=== PATIENT | male | born 1975 | race Caucasian/White ===

== ENCOUNTER 2017-11-05 12:53 | Observation (INO) | END 2017-11-06 17:00 | disposition home or self-care (01) ==

== ENCOUNTER 2017-11-08 22:38 | Emergency (ER) | END 2017-11-09 03:38 | disposition home or self-care (01) ==

== ENCOUNTER 2017-11-29 16:07 | Emergency (ER) | END 2017-11-29 19:24 | disposition home or self-care (01) ==

== ENCOUNTER 2018-02-18 07:34 | Emergency (ER) | END 2018-02-18 09:26 | disposition home or self-care (01) ==

== ENCOUNTER 2018-03-18 22:27 | Emergency (ER) | END 2018-03-19 05:26 | disposition home or self-care (01) ==

== ENCOUNTER 2018-04-13 19:26 | Emergency (ER) | END 2018-04-13 21:07 | disposition home or self-care (01) ==

== ENCOUNTER 2018-05-12 19:15 | Emergency (ER) | END 2018-05-13 00:06 | disposition left against medical advice (07) ==

== ENCOUNTER 2018-06-04 12:55 | Observation (INO) | payer MEDICAID ==
[~2018-06-04] VITALS: Ht 172.7 cm; Wt 107.1 kg
[2018-06-04] MEDS: INSULIN ASPART [NOVOLOG] 3 ML PEN SC SCH (00:30)
[~2018-06-04 12:55] MED LIST: AMLO5TAB4 PO; ASPI-817 PO; LOSA100T15 PO; METF500T24 PO; METO-319 PO
[2018-06-04] MEDS ORDERED: ASPIRIN 81 MG TAB PO STA (15:59)
--- NOTE | 2018-06-04 16:09 | ERD ---
ER Documentation Chief Complaint Chief Complaint CHEST PAIN X1 DAY, SOB HPI 42-year-old male with a history of hypertension and diabetes referred by his primary care physician to the emergency room for chest pain. EKG done today at clinic was normal without any acute changes. He was given 1 nitroglycerin and 1 aspirin 325 mg prior to arrival. Patient states that since last night he has been having some intermittent chest pressure with numbness and tingling in his left face and left arm. He has had associated dizziness as well. No shortness of breath. No fevers or chills. No headache, focal weakness, or vision disturbance. ROS All systems reviewed and are negative except as per history of present illness. Medications Home Meds Reported Medications Pantoprazole* (Pantoprazole*) 40 Mg Tablet.dr, 40 MG PO AC BREAKFAST, TAB 06/04/18 Metoprolol Succinate* (Toprol XL*) 50 Mg Tab.er.24h, 50 MG PO DAILY, #30 TAB 03/19/18 Metformin Hcl* (Metformin Hcl*) 500 Mg Tablet, 500 MG PO WITH BREAKFAST DINNE, #60 TAB 03/19/18 Losartan Potassium* (Losartan Potassium*) 100 Mg Tablet, 100 MG PO DAILY, TAB 03/19/18 Amlodipine Besylate* (Norvasc*) 5 Mg Tablet, 5 MG PO DAILY, TAB 03/19/18 Aspirin* (Aspirin* EC) 81 Mg Tablet.dr, 81 MG PO DAILY, TAB 03/19/18 Allergies Allergies: Coded Allergies: No Known Allergy (Unverified , 06/04/18) PMhx/Soc History of Surgery: Yes (Left wrist sx, metal placement 10 years) Anesthesia Reaction: No Hx Neurological Disorder: No Hx Respiratory Disorders: No Hx Cardiac Disorders: Yes (HTN) Hx Psychiatric Problems: No Hx Miscellaneous Medical Probl: Yes (DM2, GOUT) Hx Alcohol Use: No Hx Substance Use: No Hx Tobacco Use: Yes FmHx Family History: No diabetes Physical Exam Vitals Vital Signs Date Temp Pulse Resp B/P (MAP) Pulse Ox O2 O2 Flow FiO2 Time Delivery Rate 06/04/18 98.1 75 24 131/89 96 Room Air 18:28 (103) 06/04/18 82 16 130/78 96 Room Air 17:24 (95) 06/04/18 97.6 82 17 123/81 95 12:58 (95) Physical Exam Const: No acute distress, obese Head: Atraumatic Eyes: Normal Conjunctiva, PERRLA, EOMI ENT: Normal External Ears, Nose and Mouth. Neck: Full range of motion. No meningismus. Resp: Clear to auscultation bilaterally Cardio: Regular rate and rhythm, no murmurs. 2+ distal pulses in all 4 extremities Abd: Soft, non tender, non distended. Normal bowel sounds Skin: No petechiae or rashes Back: No midline or flank tenderness Ext: No cyanosis, or edema Neur: Awake and alert, oriented, normal speech, cranial nerves intact, strength and sensations intact in all 4 extremities. Psych: Normal Mood and Affect Result Diagram: 06/04/18 1623 06/04/18 1623 Results 24 hrs Laboratory Tests Test 06/04/18 16:23 White Blood Count 10.9 10^3/ul Red Blood Count 5.19 10^6/ul Hemoglobin 15.3 g/dl Hematocrit 46.2 % Mean Corpuscular Volume 89.0 fl Mean Corpuscular Hemoglobin 29.5 pg Mean Corpuscular Hemoglobin Concent 33.1 g/dl Red Cell Distribution Width 12.0 % Platelet Count 368 10^3/UL Mean Platelet Volume 9.1 fl Immature Granulocytes % 0.300 % Neutrophils % 61.8 % Lymphocytes % 29.8 % Monocytes % 5.1 % Eosinophils % 2.4 % Basophils % 0.6 % Nucleated Red Blood Cells % 0.0 /100WBC Immature Granulocytes # 0.030 10^3/ul Neutrophils # 6.7 10^3/ul Lymphocytes # 3.2 10^3/ul Monocytes # 0.6 10^3/ul Eosinophils # 0.3 10^3/ul Basophils # 0.1 10^3/ul Nucleated Red Blood Cells # 0.0 10^3/ul Sodium Level 139 mmol/L Potassium Level 4.0 mmol/L Chloride Level 105 mmol/L Carbon Dioxide Level 23 mmol/L Anion Gap 11 Blood Urea Nitrogen 8 mg/dl Creatinine 0.61 mg/dl Est Glomerular Filtrat Rate mL/min > 60 mL/min Glucose Level 107 mg/dl Calcium Level 9.7 mg/dl Troponin I < 0.012 ng/ml Current Medications Medications Dose Sig/Roberto Start Time Status Last (Trade) Ordered Route PRN Stop Time Admin Dose Reason Admin Aspirin 162 mg ONCE STAT 06/04/18 DC (Aspirin) PO 15:59 06/04/18 16:01 Ondansetron 4 mg ER BRIDGE 06/04/18 DC HCl (Zofran PRN IV 18:00 Inj) NAUSEA AND/OR 06/04/18 18:22 VOMITING 650 mg ER BRIDGE 06/04/18 DC Acetaminophen PRN PO MILD 18:00 (Tylenol PAIN(1-3)OR 06/04/18 18:22 Tab) ELEVATED TEMP Amlodipine 5 mg DAILY PO 06/05/18 Besylate 09:00 (Norvasc) Aspirin 81 mg DAILY PO 06/05/18 (Halfprin) 09:00 Losartan 100 mg DAILY PO 06/05/18 Potassium 09:00 (Cozaar) Metoprolol 50 mg DAILY PO 06/05/18 Succinate 09:00 (Toprol Xl) 40 mg AC 06/05/18 Pantoprazole BREAKFAST 07:00 (Protonix PO Tab) IV Flush 3 ml PER 06/04/18 (NS 3 ml) PROTOCOL IV 18:30 Ondansetron 4 mg Q6H PRN 06/04/18 HCl (Zofran IV NAUSEA 18:30 Inj) AND/OR VOMITING 1 tab Q5M PRN 06/04/18 Nitroglycerin SL CHEST 18:30 PAIN (Nitroglyceri n (Sl Tab) 0.4 Mg) 650 mg Q6H PRN 06/04/18 Acetaminophen PO PAIN 18:30 (Tylenol LEVEL 1-3 OR Tab) FEVER 1 tab Q6H PRN 06/04/18 Acetaminophen PO PAIN 18:30 / LEVEL 4-6 Hydrocodone Bitart ([place] (5/325)) Docusate 100 mg Q12H PRN 06/04/18 Sodium PO 18:30 (Colace) CONSTIPATION Magnesium 30 ml DAILY PRN 06/04/18 Hydroxide PO 18:30 (Milk Of Mag) CONSTIPATION 40 mg DAILY@06 06/05/18 UNV Pantoprazole PO 06:00 (Protonix Tab) Enoxaparin 40 mg DAILY SC 06/05/18 Sodium 09:00 (Lovenox) Discontinue ONCE ONCE 06/04/18 DC Miscellaneous current oral XX 18:30 sulfonylur... 06/04/18 18:31 Information (* Miscellaneous Pharmacy Order) Diagnostic 1 ea 02 XX 06/05/18 Test (Pha) 02:00 (Accu-Chek) ONCE ONCE 06/04/18 DC Miscellaneous HYPOGLYCEMIA XX 18:30 PROTOCOL 06/04/18 18:31 Information w... (* Miscellaneous Pharmacy Order) Insulin NOVOLOG WITH MEALS 06/04/18 Aspart *MILD* BEDTIME SC 21:00 (Novolog ALGORITHM Insulin Pen) Discontinue ONCE ONCE 06/04/18 DC Miscellaneous all previ... XX 18:30 06/04/18 18:31 Information (* Miscellaneous Pharmacy Order) 1 ea NOTE XX 06/04/18 Miscellaneous 18:30 Information Glucose 15 gm Q15M PRN 06/04/18 (Glutose) PO DECREASED 18:30 GLUCOSE Glucose 22.5 gm Q15M PRN 06/04/18 (Glutose) PO DECREASED 18:30 GLUCOSE Dextrose 25 ml Q15M PRN 06/04/18 (D50w IV DECREASED 18:30 Syringe) GLUCOSE Dextrose 50 ml Q15M PRN 06/04/18 (D50w IV DECREASED 18:30 Syringe) GLUCOSE Glucagon 1 mg Q15M PRN 06/04/18 (Glucagen) IM DECREASED 18:30 GLUCOSE Glucose 15 gm Q15M PRN 06/04/18 (Glutose) BUCCAL 18:30 DECREASED GLUCOSE Procedures/MDM EMERGENT LABS AND DIAGNOSTIC STUDIES: Lab Results above were reviewed and interpreted by me. CBC: no anemia or evidence of infection BMP: No evidence of electrolyte abnormality, renal failure, hypoglycemia Troponin within normal limits, not indicative of cardiac ischemia 12-lead EKG was interpreted by Rishabh Ordaz MD: Normal Sinus Rhythm Left posterior fascicular block T wave inversions in 3 and aVF, not seen on EKG done at doctor's office prior to arrival Impression: no acute STEMI, abnormal EKG Radiology Results as interpreted by Radiology below were reviewed by Herminia Ordaz MD: Chest x-ray: No acute abnormalities Initial Nursing notes reviewed. Previous Medical Records requested via the Electronic Health Record. EMERGENCY DEPARTMENT COURSE / MEDICAL DECISION MAKING: Patients symptoms are concerning for a cardiac etiology. Other etiologies considered were PE, aortic dissection, pneumonia, pneumothorax, esophageal rupture. EKG showed inferior T wave inversions, that may be secondary to ischemia. [Initial troponin negative. CXR grossly unremarkable. However patient has an intermediate risk of adverse events with a heart score of 4. Plan to admit for further evaluation. Patient is not safe for discharge and will need inpatient monitoring and further evaluation. Further workup will be deferred to the inpatient team. Accepting Care Team: Current data and ongoing care discussed. Time: Time of admission Primary Provider: Dr. Collins Outstanding Data: none Departure Diagnosis: Primary Impression: Chest pain Chest pain type: unspecified Qualified Codes: R07.9 - Chest pain, uns pecified Condition: Fair ROSCOE ORDAZ MD Jun 04, 2018 16:09
[2018-06-04] MEDS ORDERED: PANT40TA4 PO (16:17)
[2018-06-04] MEDS ORDERED: ONDANSETRON 4 MG INJ IV PRN ×2 (18:00→18:30)
[2018-06-04] MEDS ORDERED: ACETAMINOPHEN 325 MG TAB PO PRN ×2 (18:00→18:30)
[2018-06-04] MEDS ORDERED: NITROGLYCERIN (SL) 0.4 MG TAB SL PRN (18:30)
[2018-06-04] MEDS ORDERED: NACL 0.9% 3 ML SYG IV SCH (18:30)
[2018-06-04] MEDS ORDERED: GLUCOSE GEL 15 GRAM TUBE PO PRN ×2 (18:30)
[2018-06-04] MEDS ORDERED: GLUCAGON 1 MG INJ IM PRN (18:30)
[2018-06-04] MEDS ORDERED: HYDROCODONE/APAP (5/325) TAB PO PRN (18:30)
[2018-06-04] MEDS ORDERED: DOCUSATE SODIUM 100 MG CAP PO PRN (18:30)
[2018-06-04] MEDS ORDERED: MAGNESIUM HYDROXIDE 30ML CUP PO PRN (18:30)
[2018-06-04] MEDS ORDERED: DEXTROSE 50% 50 ML SYRINGE IV PRN ×2 (18:30)
[2018-06-04] MEDS ORDERED: GLUCOSE GEL 15 GRAM TUBE BUCCAL PRN (18:30)
--- NOTE | 2018-06-04 19:22 | HP ---
Date/Time of Note Date/Time of Note DATE: 06/04/18 TIME: 19:10 Assessment/Plan VTE Prophylaxis SCD applied (from Nsg): Yes Pharmacological prophylaxis: LMWH Lines/Catheters IV Catheter Type (from Nrsg): Saline Lock Assessment/Plan Assessment/Plan 1. Acute chest pain, rule out ACS - Cardiology consultation appreciated and will continue to trend trops - Negative trop x1 - EKG negative for acute ST changes - ECHO ordered - Stress performed 10/2017 was negative for acute ischemic changes - will check TSH and lipid panel 2. RUQ pain - rule out acute adelia - RUQ US performed and will check LFTs - Zosyn empirically started given elevated WBC 3. DM - A1c noted - Will hold home metformin - ISS and accuchecks 4. HTN - continue home medications 5. Diet - Carb controlled 6. GI ppx - PPI 7. DVT ppx - LMWH 8. Disposition - Admit to telemetry for ACS workup as well as evaluation of RUQ pain Result Diagram: 06/04/18 1623 06/04/18 1623 Results 24hrs Laboratory Tests Test 06/04/18 16:23 White Blood Count 10.9 #H Red Blood Count 5.19 Hemoglobin 15.3 Hematocrit 46.2 Mean Corpuscular Volume 89.0 Mean Corpuscular Hemoglobin 29.5 Mean Corpuscular Hemoglobin Concent 33.1 Red Cell Distribution Width 12.0 Platelet Count 368 Mean Platelet Volume 9.1 Immature Granulocytes % 0.300 Neutrophils % 61.8 Lymphocytes % 29.8 Monocytes % 5.1 Eosinophils % 2.4 Basophils % 0.6 Nucleated Red Blood Cells % 0.0 Immature Granulocytes # 0.030 Neutrophils # 6.7 Lymphocytes # 3.2 H Monocytes # 0.6 Eosinophils # 0.3 Basophils # 0.1 Nucleated Red Blood Cells # 0.0 Sodium Level 139 Potassium Level 4.0 Chloride Level 105 Carbon Dioxide Level 23 Anion Gap 11 Blood Urea Nitrogen 8 Creatinine 0.61 Est Glomerular Filtrat Rate mL/min > 60 Glucose Level 107 Hemoglobin A1c 6.2 H Calcium Level 9.7 Troponin I < 0.012 HPI/ROS Admit Date/Time Admit Date/Time 06/04/18 1830 Hx of Present Illness 42 yo M with PMH HTN, DM, and tobacco abuse presented to ED with chest pain. Patient states he was experiencing left arm numbness that radiated to his face as well as neck and left sided chest pain at rest that started last night. He denies any association with active or food. He admits to associated shortness of breath, dizziness, nausea but denies any vomiting, loss of consciousness or palpitations. He went to his primary care physician who performed and EKG which was normal. He was given aspirin and nitro prior to arrival. He was here last October with similar chest pain but numbness and tingling were new. Patient also admits to 1 week of RUQ pain with associated nausea, diarrhea, and worsens after eating. Patient states his mother has HTN but denies any family history of CAD. ROS All 12 systems reviewed and pertinent positives as per HPI. All others negative. Constitutional: nausea; No chills, No fatigue Eyes: No discharge ENT: No congestion Respiratory: shortness of breath; No cough, No sputum, No wheezing Cardiovascular: chest pain; No lightheadedness, No palpitations Gastrointestinal: pain, diarrhea, nausea; No constipation, No vomiting Genitourinary: no complaints Musculoskeletal: no complaints Skin: No laceration, No rash Neurologic: other (numbness left arm and face); No confusion, No dizziness, No focal-weakness, No headache, No syncope Endocrine: no complaints Lymphatic: no complaints Psychological: nl mood/affect Immunologic: no complaints PMH/Family/Social Past Medical History Medical History: diabetes, hypertension Medications Current Medications Amlodipine Besylate (Norvasc) 5 mg DAILY PO ; Start 06/05/18 at 09:00 Aspirin (Halfprin) 81 mg DAILY PO ; Start 06/05/18 at 09:00 Losartan Potassium (Cozaar) 100 mg DAILY PO ; Start 06/05/18 at 09:00 Metoprolol Succinate (Toprol Xl) 50 mg DAILY PO ; Start 06/05/18 at 09:00 Pantoprazole (Protonix Tab) 40 mg AC BREAKFAST PO ; Start 06/05/18 at 07:00 IV Flush (NS 3 ml) 3 ml PER PROTOCOL IV ; Start 06/04/18 at 18:30 Ondansetron HCl (Zofran Inj) 4 mg Q6H PRN IV NAUSEA AND/OR VOMITING; Start 06/04/18 at 18:30 Nitroglycerin (Nitroglycerin (Sl Tab) 0.4 Mg) 1 tab Q5M PRN SL CHEST PAIN; Start 06/04/18 at 18:30 Acetaminophen (Tylenol Tab) 650 mg Q6H PRN PO PAIN LEVEL 1-3 OR FEVER; Start 06/04/18 at 18:30 Acetaminophen/ Hydrocodone Bitart ([place] (5/325)) 1 tab Q6H PRN PO PAIN LEVEL 4-6; Start 06/04/18 at 18:30 Docusate Sodium (Colace) 100 mg Q12H PRN PO CONSTIPATION; Start 06/04/18 at 18:30 Magnesium Hydroxide (Milk Of Mag) 30 ml DAILY PRN PO CONSTIPATION; Start 06/04/18 at 18:30 Enoxaparin Sodium (Lovenox) 40 mg DAILY SC ; Start 06/05/18 at 09:00 Diagnostic Test (Pha) (Accu-Chek) 1 ea 02 XX ; Start 06/05/18 at 02:00 Insulin Aspart (Novolog Insulin Pen) NOVOLOG *MILD* ALGORITHM WITH MEALS BEDTIME SC ; Start 06/04/18 at 21:00 Miscellaneous Information 1 ea NOTE XX ; Start 06/04/18 at 18:30 Glucose (Glutose) 15 gm Q15M PRN PO DECREASED GLUCOSE; Start 06/04/18 at 18:30 Glucose (Glutose) 22.5 gm Q15M PRN PO DECREASED GLUCOSE; Start 06/04/18 at 18:30 Dextrose (D50w Syringe) 25 ml Q15M PRN IV DECREASED GLUCOSE; Start 06/04/18 at 18:30 Dextrose (D50w Syringe) 50 ml Q15M PRN IV DECREASED GLUCOSE; Start 06/04/18 at 18:30 Glucagon (Glucagen) 1 mg Q15M PRN IM DECREASED GLUCOSE; Start 06/04/18 at 18:30 Glucose (Glutose) 15 gm Q15M PRN BUCCAL DECREASED GLUCOSE; Start 06/04/18 at 18:30 Coded Allergies: No Known Allergy (Unverified , 06/04/18) Past Surgical History Past Surgical Hx: no surgical history Family History Significant Family History: hypertension Social History Alcohol Use: none Smoking Status: Current some day smoker Drug Use: none Exam/Review of Systems Vital Signs Vitals Vital Signs Date Temp Pulse Resp B/P (MAP) Pulse Ox O2 O2 Flow FiO2 Time Delivery Rate 06/04/18 98.1 75 24 131/89 96 Room Air 18:28 (103) Exam Exam General: Patient is laying in bed and answers questions appropriately. no acute distress. Mentation: Patient is alert and oriented x4 Head: Normocephalic atraumatic Eyes: EOMI, pupils reactive to light Neck: Supple, nontender, midline Respiratory: Clear to auscultation bilaterally. no wheezing or rhonchi Cardiovascular: S1, S2, Regular rate and rhythm, no obvious murmurs Gastrointestinal: soft, tender to palpation RUQ, +Aplma sign, bowel sounds heard. no rebound or guarding Neurological: Moves all extremities spontaneously. diminished sensation LUE. no focal deficits appreciated Skin: No new skin lesions or rashes Ext: no cyanosis, clubbing, or edema Additional Comments home medications reviewed CXR: PROCEDURE: XR Chest. CLINICAL INDICATION: chest pain TECHNIQUE: Single frontal view of the chest was obtained COMPARISON: 04/13/2018 FINDINGS: The heart and mediastinum are within normal limits. The lungs are clear. There is no pleural effusion or pneumothorax. RPTAT: AA IMPRESSION: No acute disease. .Cooper Smith MD, MD Date Time Electronically viewed and signed by .Cooper Smith MD, MD on 06/04/2018 16:19 ESTRELLA CASTELLON MD Jun 04, 2018 19:22
--- NOTE | 2018-06-04 19:24 | CONS ---
Date/Time of Note Date/Time of Note DATE: 06/04/18 TIME: 19:17 Assessment/Plan Assessment/Plan Hospital Course Chest pain: Atypical and ongoing for 2 days with normal troponin and EKG is not suggestive of cardiac ischemia. Also neurologic complaints do not correspond with cardiac ischemia. Doubt aortic dissection as the pt is minimally symptomatic and hemodynamically stable with normal/equal pulses. He already had chest pain workup 11/09 including normal echo and Lexiscan so if his trops are negative, no further workup is indicated. Arm numbness/neck pain/chest symptoms: consider cervical disease RUQ pain: being evaluated for cholecystitis DM HTN -continue ASA -lipitor 20mg -metoprolol succ 50mg -losartan 100mg -amlodipine 5mg -trend trops -further workup per primary team Result Diagram: 06/04/18 1623 06/04/18 1623 Results 24hrs Laboratory Tests Test 06/04/18 16:23 White Blood Count 10.9 #H Red Blood Count 5.19 Hemoglobin 15.3 Hematocrit 46.2 Mean Corpuscular Volume 89.0 Mean Corpuscular Hemoglobin 29.5 Mean Corpuscular Hemoglobin Concent 33.1 Red Cell Distribution Width 12.0 Platelet Count 368 Mean Platelet Volume 9.1 Immature Granulocytes % 0.300 Neutrophils % 61.8 Lymphocytes % 29.8 Monocytes % 5.1 Eosinophils % 2.4 Basophils % 0.6 Nucleated Red Blood Cells % 0.0 Immature Granulocytes # 0.030 Neutrophils # 6.7 Lymphocytes # 3.2 H Monocytes # 0.6 Eosinophils # 0.3 Basophils # 0.1 Nucleated Red Blood Cells # 0.0 Sodium Level 139 Potassium Level 4.0 Chloride Level 105 Carbon Dioxide Level 23 Anion Gap 11 Blood Urea Nitrogen 8 Creatinine 0.61 Est Glomerular Filtrat Rate mL/min > 60 Glucose Level 107 Hemoglobin A1c 6.2 H Calcium Level 9.7 Troponin I < 0.012 Consultation Date/Type/Reason Admit Date/Time Date of Consultation: Jun 04, 2018 Type of Consult Cardiology Reason for Consultation chest pain Requesting Provider: ESTRELLA CASTELLON MD Hx of Present Illness 42 yo M with a h/o DM, HTN, who presented with left face/arm/leg numbness and chest pain. He notes that yesterday am he started to feel numbness in hie left side as well as left upper chest wall pain. He also complains of neck pain. The symptoms have persisted until now and are still 4/10. He is not very active in general but denies chest pain with normal daily activities. In October 2017 he had a similar chest pain episode but without the numbness. At that time Lexiscan and echo were both normal. Also complaining of RUQ pain worse with eating for the past 1 week. He has been belching more and feels bloated as well. per hPI Past Medical History per HPI Medications Current Medications Amlodipine Besylate (Norvasc) 5 mg DAILY PO ; Start 06/05/18 at 09:00 Aspirin (Halfprin) 81 mg DAILY PO ; Start 06/05/18 at 09:00 Losartan Potassium (Cozaar) 100 mg DAILY PO ; Start 06/05/18 at 09:00 Metoprolol Succinate (Toprol Xl) 50 mg DAILY PO ; Start 06/05/18 at 09:00 Pantoprazole (Protonix Tab) 40 mg AC BREAKFAST PO ; Start 06/05/18 at 07:00 IV Flush (NS 3 ml) 3 ml PER PROTOCOL IV ; Start 06/04/18 at 18:30 Ondansetron HCl (Zofran Inj) 4 mg Q6H PRN IV NAUSEA AND/OR VOMITING; Start 06/04/18 at 18:30 Nitroglycerin (Nitroglycerin (Sl Tab) 0.4 Mg) 1 tab Q5M PRN SL CHEST PAIN; Start 06/04/18 at 18:30 Acetaminophen (Tylenol Tab) 650 mg Q6H PRN PO PAIN LEVEL 1-3 OR FEVER; Start 06/04/18 at 18:30 Acetaminophen/ Hydrocodone Bitart ([place] (5/325)) 1 tab Q6H PRN PO PAIN LEVEL 4-6; Start 06/04/18 at 18:30 Docusate Sodium (Colace) 100 mg Q12H PRN PO CONSTIPATION; Start 06/04/18 at 18:30 Magnesium Hydroxide (Milk Of Mag) 30 ml DAILY PRN PO CONSTIPATION; Start 06/04/18 at 18:30 Enoxaparin Sodium (Lovenox) 40 mg DAILY SC ; Start 06/05/18 at 09:00 Diagnostic Test (Pha) (Accu-Chek) 1 ea 02 XX ; Start 06/05/18 at 02:00 Insulin Aspart (Novolog Insulin Pen) NOVOLOG *MILD* ALGORITHM WITH MEALS BEDTIME SC ; Start 06/04/18 at 21:00 Miscellaneous Information 1 ea NOTE XX ; Start 06/04/18 at 18:30 Glucose (Glutose) 15 gm Q15M PRN PO DECREASED GLUCOSE; Start 06/04/18 at 18:30 Glucose (Glutose) 22.5 gm Q15M PRN PO DECREASED GLUCOSE; Start 06/04/18 at 18:30 Dextrose (D50w Syringe) 25 ml Q15M PRN IV DECREASED GLUCOSE; Start 06/04/18 at 18:30 Dextrose (D50w Syringe) 50 ml Q15M PRN IV DECREASED GLUCOSE; Start 06/04/18 at 18:30 Glucagon (Glucagen) 1 mg Q15M PRN IM DECREASED GLUCOSE; Start 06/04/18 at 18:30 Glucose (Glutose) 15 gm Q15M PRN BUCCAL DECREASED GLUCOSE; Start 06/04/18 at 18:30 Allergies: Coded Allergies: No Known Allergy (Unverified , 06/04/18) Social History Smoking Status: Current some day smoker Exam/Review of Systems Vital Signs Vitals Vital Signs Date Temp Pulse Resp B/P (MAP) Pulse Ox O2 O2 Flow FiO2 Time Delivery Rate 06/04/18 98.1 75 24 131/89 96 Room Air 18:28 (103) Exam Constitutional: alert, oriented Psych: no complaints, nl mood/affect Head: normocephalic, atraumatic Neck: supple; No jvd Respiratory: clear to auscultation; No crackles/rales Cardiovascular: regular rate and rhythm; No edema, No systolic murmur Gastrointestinal: soft; No non-tender (mild RUQ), No distended Neurological: nl mental status, nl speech Additional Comments EKG: sinus, isolated TWI lead III, no ST changes Medications Medications Current Medications Amlodipine Besylate (Norvasc) 5 mg DAILY PO ; Start 06/05/18 at 09:00 Aspirin (Halfprin) 81 mg DAILY PO ; Start 06/05/18 at 09:00 Losartan Potassium (Cozaar) 100 mg DAILY PO ; Start 06/05/18 at 09:00 Metoprolol Succinate (Toprol Xl) 50 mg DAILY PO ; Start 06/05/18 at 09:00 Pantoprazole (Protonix Tab) 40 mg AC BREAKFAST PO ; Start 06/05/18 at 07:00 IV Flush (NS 3 ml) 3 ml PER PROTOCOL IV ; Start 06/04/18 at 18:30 Ondansetron HCl (Zofran Inj) 4 mg Q6H PRN IV NAUSEA AND/OR VOMITING; Start 06/04/18 at 18:30 Nitroglycerin (Nitroglycerin (Sl Tab) 0.4 Mg) 1 tab Q5M PRN SL CHEST PAIN; St art 06/04/18 at 18:30 Acetaminophen (Tylenol Tab) 650 mg Q6H PRN PO PAIN LEVEL 1-3 OR FEVER; Start 06/04/18 at 18:30 Acetaminophen/ Hydrocodone Bitart ([place] (5/325)) 1 tab Q6H PRN PO PAIN LEVEL 4-6; Start 06/04/18 at 18:30 Docusate Sodium (Colace) 100 mg Q12H PRN PO CONSTIPATION; Start 06/04/18 at 18:30 Magnesium Hydroxide (Milk Of Mag) 30 ml DAILY PRN PO CONSTIPATION; Start 06/04/18 at 18:30 Enoxaparin Sodium (Lovenox) 40 mg DAILY SC ; Start 06/05/18 at 09:00 Diagnostic Test (Pha) (Accu-Chek) 1 ea 02 XX ; Start 06/05/18 at 02:00 Insulin Aspart (Novolog Insulin Pen) NOVOLOG *MILD* ALGORITHM WITH MEALS BEDTIME SC ; Start 06/04/18 at 21:00 Miscellaneous Information 1 ea NOTE XX ; Start 06/04/18 at 18:30 Glucose (Glutose) 15 gm Q15M PRN PO DECREASED GLUCOSE; Start 06/04/18 at 18:30 Glucose (Glutose) 22.5 gm Q15M PRN PO DECREASED GLUCOSE; Start 06/04/18 at 18:30 Dextrose (D50w Syringe) 25 ml Q15M PRN IV DECREASED GLUCOSE; Start 06/04/18 at 18:30 Dextrose (D50w Syringe) 50 ml Q15M PRN IV DECREASED GLUCOSE; Start 06/04/18 at 18:30 Glucagon (Glucagen) 1 mg Q15M PRN IM DECREASED GLUCOSE; Start 06/04/18 at 18:30 Glucose (Glutose) 15 gm Q15M PRN BUCCAL DECREASED GLUCOSE; Start 06/04/18 at 18:30 REJI REINOSO Jun 04, 2018 19:24
[2018-06-04] MEDS ORDERED: morphine 2 MG INJ IV PRN (19:30)
[2018-06-04 21:27] VITALS: PULSE 87
[2018-06-04 22:00] VITALS: BP 130/73; PULSE 83; RESP 20
[2018-06-04 22:31] VITALS: Ht 172.7 cm; Wt 107.1 kg
[2018-06-05] VITALS (10 sets, daily range): BP systolic 85–128; BP diastolic 61–88; PULSE 58–97; RESP 15–18
[2018-06-05] MEDS: PIPER-TAZO 3.375 GM IV (PMX) 100 ML IVPB SCH ×2 (00:25→06:26)
[2018-06-05] MEDS: NICOTINE (7 MG/24 HR) PATCH TRANSDERM SCH ×2 (00:39→08:34)
[2018-06-05] MEDS ORDERED: ACCU-CHEK XX SCH (02:00)
[2018-06-05] MEDS ORDERED: PANTOPRAZOLE (EC) 40 MG TAB PO SCH ×2 (06:00→07:00)
[2018-06-05] MEDS: INSULIN ASPART [NOVOLOG] 3 ML PEN SC SCH ×2 (07:55→11:50)
[2018-06-05] MEDS ORDERED: ENOXAPARIN 40 MG/0.4 ML SYG SC SCH (09:00)
[2018-06-05] MEDS ORDERED: LOSARTAN 50 MG TAB PO SCH (09:00)
[2018-06-05] MEDS ORDERED: ASPIRIN (EC) 81 MG TAB PO SCH (09:00)
[2018-06-05] MEDS ORDERED: METOPROLOL (XL) 50 MG TAB PO SCH (09:00)
[2018-06-05] MEDS ORDERED: ATORVASTATIN 20 MG TAB PO SCH (09:00)
[2018-06-05] MEDS ORDERED: AMLODIPINE 5 MG TAB PO SCH (09:00)
--- NOTE | 2018-06-05 10:56 | RADRPT ---
Echocardiogram Report Patient Name: RODRIGUEZ ALVAREZ Gender: Male Date: 1975 Study Date: 05-Jun-2018 Corporate Librarian: Alo Arroyo RDCS Location: [facility] Ref. Physician: ESTRELLA CASTELLON Quality: Adequate Procedures: Transthoracic echocardiogram with complete 2D, M-Mode, and doppler examination. Indications: Chest Pain. 2D/M Mode Doppler Measurement Value Normal Ranges Measurement Value Normal Ranges LVIDd 2D 4.2 3.5 - 5.6 cm AV Peak Reymundo 1.1 m/sec LVIDs 2D 2.8 2.1 - 4.1 cm AV Peak PG 5.0 mmHg FS 2D 32.3 % LVOT Peak Reymundo 0.9 m/sec LVPWd 2D 1.5 0.6 - 1.1 cm LVOT Peak PG 3.0 mmHg IVSd 2D 1.0 0.6 - 1.1 cm MV E Peak Reymundo 0.7 m/sec IVS/LVPW 2D 0.7 MV A Peak Reymundo 0.5 m/sec AoR Diam 2D 2.5 2.0 - 3.7 cm MV E/A 1.5 LA/Ao 2D 1 0 - 1 MV Decel Time 134 msec EDV 2D 73.0 cm3 MV E/A 1.5 ESV 2D 22.7 cm3 TV E Peak Reymundo 0.6 m/sec LA Dimen 2D 3.2 2.3 - 4.0 cm Findings Left Ventricle: Normal left ventricular systolic function. Normal left ventricular cavity size. Mild concentric left ventricular hypertrophy. Ejection fraction is visually estimated at 60 %. Right Ventricle: Normal right ventricular size. Normal right ventricular systolic function. Left Atrium: The left atrium is normal in size. Right Atrium: The right atrium is normal in size. Mitral Valve: Normal appearance of the mitral valve. No mitral valve regurgitation is seen. Aortic Valve: Normal appearance of the aortic valve. No aortic regurgitation. Tricuspid Valve: Normal appearance of the tricuspid valve. Unable to obtain RVSP due to minimal presence of tricuspid regurgitation. No evidence of tricuspid regurgitation. Pulmonic Valve: Normal pulmonic valve appearance. No evidence of pulmonic regurgitation. Pericardium: Normal pericardium with no significant pericardial effusion. Aorta: Normal aortic root. IVC: Normal size and normal respiratory collapse consistent with normal right atrial pressure. Conclusions Normal left ventricular systolic function. Normal left ventricular cavity size. Mild concentric left ventricular hypertrophy. Ejection fraction is visually estimated at 60 %. No significant valvular stenosis or regurgitation seen. Unable to obtain RVSP due to minimal presence of tricuspid regurgitation. Normal size and normal respiratory collapse consistent with normal right atrial pressure. Electronically Signed By: Neel Liu 05-Jun-2018 10:55:40 -0800 Patient Name: RODRIGUEZ ALVAREZ Study Date: 05-Jun-2018 [id number]
--- NOTE | 2018-06-05 11:20 | PN ---
Date/Time of Note Date/Time of Note DATE: 06/05/18 TIME: 11:16 Assessment/Plan VTE Prophylaxis Risk score (from Ns)>0 risk: 2 SCD applied (from Ns): No SCD contraindicated: low risk/ambulating Pharmacological prophylaxis: LMWH Lines/Catheters IV Catheter Type (from Nrs): Saline Lock Urinary Cath still in place: No Assessment/Plan Assessment/Plan 1. Acute chest pain, noncardiac - Cardiology on board and appreciate recommendations. Serial trops negative and had stress performed 10/2017 that was negative for acute ischemic changes - Discussed continuing current diet and increase physical activity - Lipid panel noted 2. RUQ pain- resolved - rule out acute adelia - RUQ US shows fatty liver but no issues with GB - LFT within normal limits 3. DM - A1c noted - Will hold home metformin - ISS and accuchecks 4. HTN - continue home medications 5. Disposition - Medically stable for discharge home Result Diagram: 06/05/18 0606 06/05/18 0606 Results 24hrs Laboratory Tests Test 06/04/18 16:23 06/04/18 22:06 06/05/18 00:37 06/05/18 06:06 White Blood Count 10.9 #H 9.4 Red Blood Count 5.19 5.06 Hemoglobin 15.3 14.9 Hematocrit 46.2 44.7 Mean Corpuscular 89.0 88.3 Volume Mean Corpuscular 29.5 29.4 Hemoglobin Mean Corpuscular 33.1 33.3 Hemoglobin Concent Red Cell 12.0 11.9 Distribution Width Platelet Count 368 374 Mean Platelet Volume 9.1 9.5 Immature 0.300 0.400 Granulocytes % Neutrophils % 61.8 59.9 Lymphocytes % 29.8 29.4 Monocytes % 5.1 7.6 Eosinophils % 2.4 2.2 Basophils % 0.6 0.5 Nucleated Red Blood 0.0 0.0 Cells % Immature 0.030 0.040 H Granulocytes # Neutrophils # 6.7 5.6 Lymphocytes # 3.2 H 2.8 Monocytes # 0.6 0.7 Eosinophils # 0.3 0.2 Basophils # 0.1 0.1 Nucleated Red Blood 0.0 0.0 Cells # Sodium Level 139 142 Potassium Level 4.0 4.2 Chloride Level 105 102 Carbon Dioxide Level 23 26 Anion Gap 11 14 H Blood Urea Nitrogen 8 10 Creatinine 0.61 0.64 Est Glomerular > 60 > 60 Filtrat Rate mL/min Glucose Level 107 100 Hemoglobin A1c 6.2 H Calcium Level 9.7 9.7 Total Bilirubin 0.2 0.8 Direct Bilirubin 0.00 0.00 Indirect Bilirubin 0.2 0.8 Aspartate Amino 26 20 Transf (AST/SGOT) Alanine 26 33 Aminotransferase (AL T/SGPT) Alkaline Phosphatase 74 65 Troponin I < 0.012 < 0.012 < 0.012 Total Protein 8.3 H 7.3 # Albumin 4.6 4.2 Creatine Kinase 50 50 Creatine Kinase 0.4 0.4 Index Creatinine Kinase MB < 0.22 < 0.22 (Mass) Bedside Glucose 153 Magnesium Level 2.0 Globulin 3.10 Albumin/Globulin 1.35 Ratio Triglycerides Level 108 Cholesterol Level 80 L LDL Cholesterol, 34 Calculated HDL Cholesterol 24 L Cholesterol/HDL 3.3 Ratio Thyroid Stimulating 1.980 Hormone (TSH) Test 06/05/18 07:57 Bedside Glucose 104 Subjective 24 Hr Interval Summary Free Text/Dictation Patient states abdominal pain has resolved and chest pain improved after Tylenol given. No acute overnight events. Exam/Review of Systems Vital Signs Vitals Vital Signs Date Temp Pulse Resp B/P (MAP) Pulse Ox O2 O2 Flow FiO2 Time Delivery Rate 06/05/18 96 08:01 06/05/18 97.9 18 124/77 97 07:10 (93) 06/04/18 Room Air 20:39 Intake and Output 06/04/18 06/04/18 06/05/18 1515:00 23:00 07:00 IntakeIntake Total 340 ml BalanceBalance 340 ml Exam General: Patient is laying in bed and answers questions appropriately. no acute distress. Respiratory: Clear to auscultation bilaterally. no wheezing or rhonchi Cardiovascular: S1, S2, Regular rate and rhythm, no obvious murmurs Gastrointestinal: soft, nontender to palpation RUQ, bowel sounds heard. no rebound or guarding Neurological: Moves all extremities spontaneously. no focal deficits appreciated Skin: no rashes or lesions Medications Medications Current Medications Amlodipine Besylate (Norvasc) 5 mg DAILY PO Last administered on 06/05/18at 08:33; Admin Dose 5 MG; Start 06/05/18 at 09:00 Aspirin (Halfprin) 81 mg DAILY PO Last administered on 06/05/18at 08:33; Admin Dose 81 MG; Start 06/05/18 at 09:00 Losartan Potassium (Cozaar) 100 mg DAILY PO Last administered on 06/05/18at 08:32; Admin Dose 100 MG; Start 06/05/18 at 09:00 Metoprolol Succinate (Toprol Xl) 50 mg DAILY PO Last administered on 06/05/18at 08:33; Admin Dose 50 MG; Start 06/05/18 at 09:00 Pantoprazole (Protonix Tab) 40 mg AC BREAKFAST PO Last administered on 06/05/18at 06:26; Admin Dose 40 MG; Start 06/05/18 at 07:00 IV Flush (NS 3 ml) 3 ml PER PROTOCOL IV ; Start 06/04/18 at 18:30 Ondansetron HCl (Zofran Inj) 4 mg Q6H PRN IV NAUSEA AND/OR VOMITING; Start 06/04/18 at 18:30 Nitroglycerin (Nitroglycerin (Sl Tab) 0.4 Mg) 1 tab Q5M PRN SL CHEST PAIN; Start 06/04/18 at 18:30 Acetaminophen (Tylenol Tab) 650 mg Q6H PRN PO PAIN LEVEL 1-3 OR FEVER Last administered on 06/05/18at 08:32; Admin Dose 650 MG; Start 06/04/18 at 18:30 Acetaminophen/ Hydrocodone Bitart ([place] (5/325)) 1 tab Q6H PRN PO PAIN LEVEL 4-6; Start 06/04/18 at 18:30 Docusate Sodium (Colace) 100 mg Q12H PRN PO CONSTIPATION; Start 06/04/18 at 18:30 Magnesium Hydroxide (Milk Of Mag) 30 ml DAILY PRN PO CONSTIPATION; Start 06/04/18 at 18:30 Enoxaparin Sodium (Lovenox) 40 mg DAILY SC Last administered on 06/05/18at 09:11; Admin Dose 40 MG; Start 06/05/18 at 09:00 Diagnostic Test (Pha) (Accu-Chek) 1 ea 02 XX ; Start 06/05/18 at 02:00 Insulin Aspart (Novolog Insulin Pen) NOVOLOG *MILD* ALGORITHM WITH MEALS BEDTIME SC ; Start 06/04/18 at 21:00 Miscellaneous Information 1 ea NOTE XX ; Start 06/04/18 at 18:30 Glucose (Glutose) 15 gm Q15M PRN PO DECREASED GLUCOSE; Start 06/04/18 at 18:30 Glucose (Glutose) 22.5 gm Q15M PRN PO DECREASED GLUCOSE; Start 06/04/18 at 18: 30 Dextrose (D50w Syringe) 25 ml Q15M PRN IV DECREASED GLUCOSE; Start 06/04/18 at 18:30 Dextrose (D50w Syringe) 50 ml Q15M PRN IV DECREASED GLUCOSE; Start 06/04/18 at 18:30 Glucagon (Glucagen) 1 mg Q15M PRN IM DECREASED GLUCOSE; Start 06/04/18 at 18:30 Glucose (Glutose) 15 gm Q15M PRN BUCCAL DECREASED GLUCOSE; Start 06/04/18 at 18:30 Morphine Sulfate (morphine) 2 mg Q4H PRN IV SEVERE PAIN LEVEL 7-10; Start 06/04/18 at 19:30 Piperacillin Sod/ Tazobactam Sod 100 ml @ 200 mls/hr Q8 IVPB Last administered on 06/05/18at 06:26; Admin Dose 200 MLS/HR; Start 06/04/18 at 22:00 Nicotine (Nicoderm 7 Mg/ 24 Hr) 1 patch DAILY TRANSDERM Last administered on 06/05/18at 08:34; Admin Dose 1 PATCH; Start 06/04/18 at 19:30 Atorvastatin Calcium (Lipitor) 20 mg DAILY PO Last administered on 06/05/18at 08 :33; Admin Dose 20 MG; Start 06/05/18 at 09:00 ESTRELLA CASTELLON MD Jun 05, 2018 11:20
[2018-06-05] MEDS ORDERED: RANI150T35 PO (11:22)
--- NOTE | 2018-06-05 11:24 | PDOCDIS ---
Discharge Instructions DIAGNOSIS Discharge Diagnosis 1. Acute chest pain, noncardiac 2. RUQ pain- resolved 3. Diabetes Mellitus 4. HTN CONDITION [id number] Patient Condition: [id number] Stable HOME CARE INSTRUCTIONS: [id number] Special Diet: Baffs6n carb control ACTIVITY: [id number] Activity Restrictions: [id number] No Restrictions FOLLOW UP/APPOINTMENTS Follow-up Plan 1. Follow up with your primary care physician in 1 week 2. Take Zantac in the am prior to eating and if experiencing discomfort in chest/stomach at night as well 3. Continue healthy diet and increase physical activity as tolerated 4. Continue all medications as prescribed 5. If symptoms return, please go to your closest emergency department ESTRELLA CASTELLON MD Jun 05, 2018 11:24
--- NOTE | 2018-06-05 11:50 | CONS ---
Date/Time of Note Date/Time of Note DATE: 06/05/18 TIME: 11:49 Assessment/Plan Assessment/Plan Hospital Course Chest pain: Atypical and ongoing for 2 days with normal troponins and EKG is not suggestive of cardiac ischemia. Also neurologic complaints do not correspond with cardiac ischemia. Doubt aortic dissection as the pt is minimally symptomatic and hemodynamically stable with normal/equal pulses. He already had chest pain workup 11/09 including normal echo and Lexiscan so if his trops are negative, no further workup is indicated. Arm numbness/neck pain/chest symptoms: consider cervical disease RUQ pain: gallbladder US ok DM HTN -continue ASA -lipitor 20mg -metoprolol succ 50mg -losartan 100mg -amlodipine 5mg -ok for d/c Result Diagram: 06/05/1860506/05/18605 Results 24hrs Laboratory Tests Test 06/04/18 16:23 06/04/18 22:06 06/05/18 00:37 06/05/18 06:06 White Blood Count 10.9 #H 9.4 Red Blood Count 5.19 5.06 Hemoglobin 15.3 14.9 Hematocrit 46.2 44.7 Mean Corpuscular 89.0 88.3 Volume Mean Corpuscular 29.5 29.4 Hemoglobin Mean Corpuscular 33.1 33.3 Hemoglobin Concent Red Cell 12.0 11.9 Distribution Width Platelet Count 368 374 Mean Platelet Volume 9.1 9.5 Immature 0.300 0.400 Granulocytes % Neutrophils % 61.8 59.9 Lymphocytes % 29.8 29.4 Monocytes % 5.1 7.6 Eosinophils % 2.4 2.2 Basophils % 0.6 0.5 Nucleated Red Blood 0.0 0.0 Cells % Immature 0.030 0.040 H Granulocytes # Neutrophils # 6.7 5.6 Lymphocytes # 3.2 H 2.8 Monocytes # 0.6 0.7 Eosinophils # 0.3 0.2 Basophils # 0.1 0.1 Nucleated Red Blood 0.0 0.0 Cells # Sodium Level 139 142 Potassium Level 4.0 4.2 Chloride Level 105 102 Carbon Dioxide Level 23 26 Anion Gap 11 14 H Blood Urea Nitrogen 8 10 Creatinine 0.61 0.64 Est Glomerular > 60 > 60 Filtrat Rate mL/min Glucose Level 107 100 Hemoglobin A1c 6.2 H Calcium Level 9.7 9.7 Total Bilirubin 0.2 0.8 Direct Bilirubin 0.00 0.00 Indirect Bilirubin 0.2 0.8 Aspartate Amino 26 20 Transf (AST/SGOT) Alanine 26 33 Aminotransferase (AL T/SGPT) Alkaline Phosphatase 74 65 Troponin I < 0.012 < 0.012 < 0.012 Total Protein 8.3 H 7.3 # Albumin 4.6 4.2 Creatine Kinase 50 50 Creatine Kinase 0.4 0.4 Index Creatinine Kinase MB < 0.22 < 0.22 (Mass) Bedside Glucose 153 Magnesium Level 2.0 Globulin 3.10 Albumin/Globulin 1.35 Ratio Triglycerides Level 108 Cholesterol Level 80 L LDL Cholesterol, 34 Calculated HDL Cholesterol 24 L Cholesterol/HDL 3.3 Ratio Thyroid Stimulating 1.980 Hormone (TSH) Test 06/05/18 07:57 Bedside Glucose 104 Consultation Date/Type/Reason Admit Date/Time Jun 04, 2018 at 17:43 Initial Consult Date 06/04/18 Type of Consult Cardiology Requesting Provider: ESTRELLA CASTELLON MD 24 HR Interval Summary Free Text/Dictation No events. Symptoms resolved. Trops negative. Exam/Review of Systems Vital Signs Vitals Vital Signs Date Temp Pulse Resp B/P (MAP) Pulse Ox O2 O2 Flow FiO2 Time Delivery Rate 06/05/18 98.5 97 18 126/88 95 11:29 (101) 06/04/18 Room Air 20:39 Intake and Output 06/04/18 06/04/18 06/05/18 1515:00 23:00 07:00 IntakeIntake Total 340 ml BalanceBalance 340 ml Exam Constitutional: alert, oriented Psych: no complaints, nl mood/affect Neck: supple; No jvd Respiratory: clear to auscultation; No crackles/rales Cardiovascular: regular rate and rhythm; No edema, No systolic murmur Gastrointestinal: soft, non-tender; No distended Neurological: nl mental status, nl speech Medications Medications Current Medications Amlodipine Besylate (Norvasc) 5 mg DAILY PO Last administered on 06/05/18at 08:33; Admin Dose 5 MG; Start 06/05/18 at 09:00 Aspirin (Halfprin) 81 mg DAILY PO Last administered on 06/05/18at 08:33; Admin Dose 81 MG; Start 06/05/18 at 09:00 Losartan Potassium (Cozaar) 100 mg DAILY PO Last administered on 06/05/18at 08:32; Admin Dose 100 MG; Start 06/05/18 at 09:00 Metoprolol Succinate (Toprol Xl) 50 mg DAILY PO Last administered on 06/05/18at 08:33; Admin Dose 50 MG; Start 06/05/18 at 09:00 Pantoprazole (Protonix Tab) 40 mg AC BREAKFAST PO Last administered on 06/05/18at 06:26; Admin Dose 40 MG; Start 06/05/18 at 07:00 IV Flush (NS 3 ml) 3 ml PER PROTOCOL IV ; Start 06/04/18 at 18:30 Ondansetron HCl (Zofran Inj) 4 mg Q6H PRN IV NAUSEA AND/OR VOMITING; Start 06/04/18 at 18:30 Nitroglycerin (Nitroglycerin (Sl Tab) 0.4 Mg) 1 tab Q5M PRN SL CHEST PAIN; Start 06/04/18 at 18:30 Acetaminophen (Tylenol Tab) 650 mg Q6H PRN PO PAIN LEVEL 1-3 OR FEVER Last administered on 06/05/18at 08:32; Admin Dose 650 MG; Start 06/04/18 at 18:30 Acetaminophen/ Hydrocodone Bitart ([place] (5/325)) 1 tab Q6H PRN PO PAIN LEVEL 4-6; Start 06/04/18 at 18:30 Docusate Sodium (Colace) 100 mg Q12H PRN PO CONSTIPATION; Start 06/04/18 at 18:30 Magnesium Hydroxide (Milk Of Mag) 30 ml DAILY PRN PO CONSTIPATION; Start 06/04/18 at 18:30 Enoxaparin Sodium (Lovenox) 40 mg DAILY SC Last administered on 06/05/18at 09:11; Admin Dose 40 MG; Start 06/05/18 at 09:00 Diagnostic Test (Pha) (Accu-Chek) 1 ea 02 XX ; Start 06/05/18 at 02:00 Insulin Aspart (Novolog Insulin Pen) NOVOLOG *MILD* ALGORITHM WITH MEALS BE DTIME SC ; Start 06/04/18 at 21:00 Miscellaneous Information 1 ea NOTE XX ; Start 06/04/18 at 18:30 Glucose (Glutose) 15 gm Q15M PRN PO DECREASED GLUCOSE; Start 06/04/18 at 18:30 Glucose (Glutose) 22.5 gm Q15M PRN PO DECREASED GLUCOSE; Start 06/04/18 at 18:30 Dextrose (D50w Syringe) 25 ml Q15M PRN IV DECREASED GLUCOSE; Start 06/04/18 at 18:30 Dextrose (D50w Syringe) 50 ml Q15M PRN IV DECREASED GLUCOSE; Start 06/04/18 at 18:30 Glucagon (Glucagen) 1 mg Q15M PRN IM DECREASED GLUCOSE; Start 06/04/18 at 18:30 Glucose (Glutose) 15 gm Q15M PRN BUCCAL DECREASED GLUCOSE; Start 06/04/18 at 18:30 Morphine Sulfate (morphine) 2 mg Q4H PRN IV SEVERE PAIN LEVEL 7-10; Start 06/04/18 at 19:30 Piperacillin Sod/ Tazobactam Sod 100 ml @ 200 mls/hr Q8 IVPB Last administered on 06/05/18at 06:26; Admin Dose 200 MLS/HR; Start 06/04/18 at 22:00 Nicotine (Nicoderm 7 Mg/ 24 Hr) 1 patch DAILY TRANSDERM Last administered on 06/05/18at 08:34; Admin Dose 1 PATCH; Start 06/04/18 at 19:30 Atorvastatin Calcium (Lipitor) 20 mg DAILY PO Last administered on 06/05/18at 08:33; Admin Dose 20 MG; Start 06/05/18 at 09:00 REJI REINOSO Jun 05, 2018 11:50
--- NOTE | 2018-06-05 17:51 | DS ---
Date/Time of Note Date/Time of Note DATE: 06/05/18 TIME: 17:47 Discharge Summary Admission/Discharge Info Admit Date/Time Jun 04, 2018 at 17:43 Discharge Date/Time Jun 05, 2018 at 13:00 Discharge Diagnosis 1. Acute chest pain, noncardiac 2. RUQ pain- resolved 3. Diabetes Mellitus 4. HTN Patient Condition: Stable Consults Cardiology- Dr Liu Procedures PROCEDURE: US Abdomen. CLINICAL INDICATION: abdominal pain TECHNIQUE: Multiple real-time images were acquired of the patient's right upper quadrant abdomen and retroperitoneum utilizing a high resolution transducer. COMPARISON: None FINDINGS: The liver demonstrates increased echogenicity. The liver is normal in size and no focal solid lesions are seen. The liver measures 16.1 cm in length. The portal vein is patent with normal direction of flow. No intrahepatic biliary dilatation is seen. No gallstones are identified within the gallbladder. There is no pericholecystic fluid or gallbladder wall thickening. The common bile duct measures 4 mm in maximal dimension. The visualized portions of the pancreas are unremarkable. The tail of the pancreas is not seen. No free fluid is identified. The right kidney is normal in size, and demonstrate normal echogenicity and cortical thickness. The right kidney measures 11.9 cm in long dimension. There is no evidence of hydronephrosis. There are no kidney stones. RPTAT: AA IMPRESSION: Diffuse fatty infiltration of the liver. No evidence of gallstones. .Cooper Smith MD, Date Time Electronically viewed and signed by .Cooper Smith MD, on 06/04/2018 19:27 PROCEDURE: XR Chest. CLINICAL INDICATION: chest pain TECHNIQUE: Single frontal view of the chest was obtained COMPARISON: 04/13/2018 FINDINGS: The heart and mediastinum are within normal limits. The lungs are clear. There is no pleural effusion or pneumothorax. RPTAT: AA IMPRESSION: No acute disease. .Cooper Smith MD, Date Time Electronically viewed and signed by .Cooper Smith MD, MD on 06/04/2018 16:19 Echocardiogram Report Patient Name: RODRIGUEZ ALVAREZ Gender: Male Date: 1975 Study Date: 05-Jun-2018 Saddle Mechanic: Alo Arroyo RDCS Location: 519-A Ref. Physician: ESTRELLA CASTELLON Quality: Adequate Procedures: Transthoracic echocardiogram with complete 2D, M-Mode, and doppler examination. Indications: Chest Pain. 2D/M Mode Doppler Measurement Value Normal Ranges Measurement Value Normal Ranges LVIDd 2D 4.2 3.5 - 5.6 cm AV Peak Reymundo 1.1 m/sec LVIDs 2D 2.8 2.1 - 4.1 cm AV Peak PG 5.0 mmHg FS 2D 32.3 % LVOT Peak Reymundo 0.9 m/sec LVPWd 2D 1.5 0.6 - 1.1 cm LVOT Peak PG 3.0 mmHg IVSd 2D 1.0 0.6 - 1.1 cm MV E Peak Reymundo 0.7 m/sec IVS/LVPW 2D 0.7 MV A Peak Reymundo 0.5 m/sec AoR Diam 2D 2.5 2.0 - 3.7 cm MV E/A 1.5 LA/Ao 2D 1 0 - 1 MV Decel Time 134 msec EDV 2D 73.0 cm3 MV E/A 1.5 ESV 2D 22.7 cm3 TV E Peak Reymundo 0.6 m/sec LA Dimen 2D 3.2 2.3 - 4.0 cm Findings Left Ventricle: Normal left ventricular systolic function. Normal left ventricular cavity size. Mild concentric left ventricular hypertrophy. Ejection fraction is visually estimated at 60 %. Right Ventricle: Normal right ventricular size. Normal right ventricular systolic function. Left Atrium: The left atrium is normal in size. Right Atrium: The right atrium is normal in size. Mitral Valve: Normal appearance of the mitral valve. No mitral valve regurgitation is seen. Aortic Valve: Normal appearance of the aortic valve. No aortic regurgitation. Tricuspid Valve: Normal appearance of the tricuspid valve. Unable to obtain RVSP due to minimal presence of tricuspid regurgitation. No evidence of tricuspid regurgitation. Pulmonic Valve: Normal pulmonic valve appearance. No evidence of pulmonic regurgitation. Pericardium: Normal pericardium with no significant pericardial effusion. Aorta: Normal aortic root. IVC: Normal size and normal respiratory collapse consistent with normal right atrial pressure. Conclusions Normal left ventricular systolic function. Normal left ventricular cavity size. Mild concentric left ventricular hypertrophy. Ejection fraction is visually estimated at 60 %. No significant valvular stenosis or regurgitation seen. Unable to obtain RVSP due to minimal presence of tricuspid regurgitation. Normal size and normal respiratory collapse consistent with normal right atrial pressure. Hx of Present Illness 42 yo M with PMH HTN, DM, and tobacco abuse presented to ED with chest pain. Patient states he was experiencing left arm numbness that radiated to his face as well as neck and left sided chest pain at rest that started last night. He denies any association with active or food. He admits to associated shortness of breath, dizziness, nausea but denies any vomiting, loss of consciousness or palpitations. He went to his primary care physician who performed and EKG which was normal. He was given aspirin and nitro prior to arrival. He was here last October with similar chest pain but numbness and tingling were new. Patient also admits to 1 week of RUQ pain with associated nausea, diarrhea, and worsens after eating. Patient states his mother has HTN but denies any family history of CAD. Hospital Course Patient was admitted for chest pain workup and ACS was ruled out. Serial troponins were negative, EKG was negative for acute ST changes, and ECHO was normal. Cardiology was consulted and cleared patient for discharge given pain was determined to be noncardiac in etiology. Patient has US RUQ performed to assess for acute cholelithiasis or cholecystitis but was negative for any acute issues. LFT were within normal limits as well. Patients presenting symptoms improved and on day of discharge vitals and physical exam were stable. Patient was discharged home in good condition. He was started on H2 raymundo and advised diet modification and increase physical activity. Tobacco cessation counseling was provided as well. Home Meds Active Scripts Ranitidine Hcl* (Zantac*) 150 Mg Tablet, 150 MG PO BID for acid reflux for 30 Days, #60 TAB 6 Refills Prov:ESTRELLA CASTELLON MD 06/05/18 Reported Medications Metoprolol Succinate* (Toprol XL*) 50 Mg Tab.er.24h, 50 MG PO DAILY, #30 TAB 03/19/18 Metformin Hcl* (Metformin Hcl*) 500 Mg Tablet, 500 MG PO WITH BREAKFAST DINNE, #60 TAB 03/19/18 Losartan Potassium* (Losartan Potassium*) 100 Mg Tablet, 100 MG PO DAILY, TAB 03/19/18 Amlodipine Besylate* (Norvasc*) 5 Mg Tablet, 5 MG PO DAILY, TAB 03/19/18 Aspirin* (Aspirin* EC) 81 Mg Tablet.dr, 81 MG PO DAILY, TAB 03/19/18 Discontinued Reported Medications Pantoprazole* (Pantoprazole*) 40 Mg Tablet.dr, 40 MG PO AC BREAKFAST, TAB 06/04/18 Follow-up Plan 1. Follow up with your primary care physician in 1 week 2. Take Zantac in the am prior to eating and if experiencing discomfort in chest/stomach at night as well 3. Continue healthy diet and increase physical activity as tolerated 4. Continue all medications as prescribed 5. If symptoms return, please go to your closest emergency department Primary Care Provider Not On Staff Doctor Time spent on discharge: > 30 minutes Pending Labs Laboratory Tests Test 06/04/18 22:06 06/05/18 00:37 06/05/18 06:06 06/05/18 07:57 Creatine 50 50 Kinase IU/L (23-200) IU/L (23-200) Creatine Kinase 0.4 0.4 Index Creatinine < 0.22 < 0.22 Kinase MB ng/ml (0.0-2.4) ng/ml (0.0-2.4 (Mass) ) Troponin I < 0.012 < 0.012 ng/ml (0.000-0. ng/ml (0.000-0 120) .120) Bedside 153 104 Glucose mg/dL (70-220) mg/dL (70-220) White Blood 9.4 Count 10^3/ul (4.8-1 0.8) Red Blood 5.06 Count 10^6/ul (4.70- 6.10) Hemoglobin 14.9 g/dl (14.0-18. 0) Hematocrit 44.7 % (42.0-52.0) Mean 88.3 Corpuscular fl (82.0-101.0 Volume ) Mean 29.4 Corpuscular pg (29.0-33.0) Hemoglobin Mean 33.3 Corpuscular g/dl (32.0-37. Hemoglobin Conc 0) ent Red Cell 11.9 Distribution % (11.5-14.5) Width Platelet Count 374 10^3/UL (140-4 15) Mean Platelet 9.5 Volume fl (7.4-10.4) Immature 0.400 Granulocytes % % (0.001-0.429 ) Neutrophils % 59.9 % (39.0-77.0) Lymphocytes % 29.4 % (15.0-51.0) Monocytes % 7.6 % (0.0-11.0) Eosinophils % 2.2 % (0.0-7.0) Basophils % 0.5 % (0.0-2.0) Nucleated Red 0.0 Blood Cells % /100WBC (0.0-0 .0) Immature 0.040 Granulocytes # 10^3/ul (0.0-0 .031) Neutrophils # 5.6 10^3/ul (1.6-7 .5) Lymphocytes # 2.8 10^3/ul (0.8-2 .9) Monocytes # 0.7 10^3/ul (0.3-0 .9) Eosinophils # 0.2 10^3/ul (0.0-0 .5) Basophils # 0.1 10^3/ul (0.0-0 .1) Nucleated Red 0.0 Blood Cells # 10^3/ul (0.0-0 .0) Sodium Level 142 mmol/L (135-14 4) Potassium 4.2 Level mmol/L (3.5-5. 1) Chloride Level 102 mmol/L (97-110 ) Carbon Dioxide 26 Level mmol/L (21-31) Anion Gap 14 (5-13) Blood Urea 10 Nitrogen mg/dl (7-20) Creatinine 0.64 mg/dl (0.61-1. 24) Est Glomerular > 60 Filtrat mL/min (>60) Rate mL/min Glucose Level 100 mg/dl (70-220) Calcium Level 9.7 mg/dl (8.4-10. 2) Magnesium 2.0 Level mg/dl (1.7-2.5 ) Total 0.8 Bilirubin mg/dl (0.2-1.3 ) Direct 0.00 Bilirubin mg/dl (0.00-0. 20) Indirect 0.8 Bilirubin mg/dl (0-1.1) Aspartate Amino 20 Transf (AST/SGO IU/L (15-46) T) Alanine 33 Aminotransferas IU/L (13-69) e (ALT/SGPT) Alkaline 65 Phosphatase IU/L (42-121) Total Protein 7.3 g/dl (6.1-8.1) Albumin 4.2 g/dl (3.3-4.9) Globulin 3.10 g/dl (1.3-3.2) Albumin/Globuli 1.35 n Ratio Triglycerides 108 Level mg/dl (0-149) Cholesterol 80 Level mg/dl (100-200 ) LDL 34 mg/dl Cholesterol, Calculated HDL 24 Cholesterol mg/dl (27-67) Cholesterol/HDL 3.3 RATIO Ratio Thyroid 1.980 Stimulating MIU/L (0.465-4 Hormone (TSH) .680) Test 06/05/18 12:09 Bedside 108 Glucose mg/dL (70-220) ESTRELLA CASTELLON MD Jun 05, 2018 17:51
== END 2018-06-05 13:00 | disposition home or self-care (01) ==
LOC: E/R 12:55 → TEL 17:43
PROVIDERS: ADMIT Internal Medicine; ATTEND Internal Medicine
DX: R07.89 Other chest pain (principal); R10.11 Right upper quadrant pain; E11.9 Type 2 diabetes mellitus without complications; I10 Essential (primary) hypertension; Z79.84 Long term (current) use of oral hypoglycemic drugs
CPT/HCPCS: 36415; 71045; 76705; 80048; 80053; 80061; 80076; 82550; 82553; 82962; 83036; 83735; 84443; 84484; 85025; 93005; 93306; J1650; J1815; J2543; Z7500; Z7502; Z7610; G0378

== ENCOUNTER 2018-08-06 15:54 | Emergency (ER) | payer MEDICAID ==
[~2018-08-06] VITALS: Wt 105.7 kg
[~2018-08-06 15:54] MED LIST changes: +RANI150T35 PO
[2018-08-06] MEDS ORDERED: KETOROLAC 30 MG INJ IV STA (17:19)
[2018-08-06] MEDS ORDERED: IBUP-1542 PO (19:15)
[2018-08-06 19:30] VITALS: BP 122/81; PULSE 67; RESP 20
--- NOTE | 2018-08-06 22:08 | ERD ---
ER Documentation Chief Complaint Chief Complaint LEFT ARM NUMBNESS/PALPITATION, ELEVATED BP AT HOME, NO PRATT/DIZZINESS/CP HPI 42-year-old male patient with no significant past medical history presents to ED stating that he has some left arm numbness, palpitation. Reports that patient had an elevated blood pressure at work of 160/110 and stated that he felt some slight chest pain. Patient was seen here May 2018 and received an echocardiogram, negative for any ACS findings. Patient also has been here previously 6 previous visits with similar symptoms. Reports that he also had a stress test for the last 6 months which was negative. Denies any nausea, vomiting, diarrhea, neck stiffness. ROS All systems reviewed and are negative except as per history of present illness. Medications Home Meds Active Scripts Ibuprofen* (Motrin*) 600 Mg Tab, 600 MG PO Q6, #30 TAB Prov:FIFI BARBOSA PA-C 08/06/18 Ranitidine Hcl* (Zantac*) 150 Mg Tablet, 150 MG PO BID for acid reflux for 30 Days, #60 TAB 6 Refills Prov:ESTRELLA CASTELLON MD 06/05/18 Reported Medications Metoprolol Succinate* (Toprol XL*) 50 Mg Tab.er.24h, 50 MG PO DAILY, #30 TAB 03/19/18 Metformin Hcl* (Metformin Hcl*) 500 Mg Tablet, 500 MG PO WITH BREAKFAST DINNE, #60 TAB 03/19/18 Losartan Potassium* (Losartan Potassium*) 100 Mg Tablet, 100 MG PO DAILY, TAB 03/19/18 Amlodipine Besylate* (Norvasc*) 5 Mg Tablet, 5 MG PO DAILY, TAB 03/19/18 Aspirin* (Aspirin* EC) 81 Mg Tablet.dr, 81 MG PO DAILY, TAB 03/19/18 Allergies Allergies: Coded Allergies: No Known Allergy (Unverified , 06/04/18) PMhx/Soc Medical and Surgical Hx: pt denies Medical Hx, pt denies Surgical Hx History of Surgery: No Anesthesia Reaction: No Hx Neurological Disorder: No Hx Respiratory Disorders: No Hx Cardiac Disorders: No Hx Psychiatric Problems: No Hx Miscellaneous Medical Probl: No Hx Alcohol Use: No Hx Substance Use: No Hx Tobacco Use: Yes Smoking Status: Current every day smoker Physical Exam Vitals Vital Signs Date Temp Pulse Resp B/P (MAP) Pulse Ox O2 O2 Flow FiO2 Time Delivery Rate 08/06/18 97.9 67 20 122/81 97 Room Air 19:30 (95) 08/06/18 98.7 89 17 157/85 100 15:59 (109) Physical Exam Const: [id number], well-nourished. In no acute distress. Head: Atraumatic, normocephalic Eyes: Normal Conjunctiva without injection. No purulent discharge. PERRL. EOMI ENT: Normal external ear. Ear canal without erythema. Tympanic membrane pearly smith without effusion or bulging. Nasal canal clear with normal turbinates. Moist oropharynx without tonsillar exudates. Non-erythematous pharynx. Uvula midline. No drooling. No trismus. Neck: Full range of motion. No meningismus. No cervical lymphadenopathy. Resp: Clear to auscultation bilaterally. No wheezing, rhonchi, rales, or crackles. No accessory muscle use. No retractions. Cardio: Regular rate and rhythm. No murmurs, rubs or gallops. Abd: Soft, non tender, non distended. Normal bowel sounds. No palpable masses. No rebound tenderness. No guarding. Skin: No petechiae or rashes Back: No midline tenderness. No CVA tenderness. Ext: No cyanosis, or edema. Neur: Awake and alert. Psych: Normal Mood and Affect Result Diagram: 08/06/18 1725 08/06/18 1725 Results 24 hrs Laboratory Tests Test 08/06/18 17:25 White Blood Count 12.7 10^3/ul Red Blood Count 5.34 10^6/ul Hemoglobin 15.9 g/dl Hematocrit 47.5 % Mean Corpuscular Volume 89.0 fl Mean Corpuscular Hemoglobin 29.8 pg Mean Corpuscular Hemoglobin Concent 33.5 g/dl Red Cell Distribution Width 12.0 % Platelet Count 387 10^3/UL Mean Platelet Volume 9.4 fl Immature Granulocytes % 0.600 % Neutrophils % 73.0 % Lymphocytes % 18.2 % Monocytes % 6.2 % Eosinophils % 1.4 % Basophils % 0.6 % Nucleated Red Blood Cells % 0.0 /100WBC Immature Granulocytes # 0.070 10^3/ul Neutrophils # 9.3 10^3/ul Lymphocytes # 2.3 10^3/ul Monocytes # 0.8 10^3/ul Eosinophils # 0.2 10^3/ul Basophils # 0.1 10^3/ul Nucleated Red Blood Cells # 0.0 10^3/ul Sodium Level 142 mmol/L Potassium Level 4.0 mmol/L Chloride Level 106 mmol/L Carbon Dioxide Level 24 mmol/L Anion Gap 12 Blood Urea Nitrogen 7 mg/dl Creatinine 0.65 mg/dl Est Glomerular Filtrat Rate mL/min > 60 mL/min Glucose Level 117 mg/dl Calcium Level 9.8 mg/dl Troponin I < 0.012 ng/ml Current Medications Medications Dose Sig/Roberto Start Time Status Last (Trade) Ordered Route PRN Stop Time Admin Dose Reason Admin Ketorolac 30 mg ONCE STAT 08/06/18 DC 08/06/18 Tromethamine IV 17: 17:25 (Toradol) 08/06/18 17:20 Procedures/MDM 42-year-old male patient with no significant past medical history presents to ED complaining of left arm numbness, palpitations. Patient is afebrile and nontoxic-appearing. Patient's blood pressure is 157/85. Blood Pressure Assessment: Patient's blood pressure was elevated (>120/80) but appears stable without evidence of hypertension emergency or urgency. The patient was counseled about the risks of hypertension and urged to pursue outpatient monitoring and therapy within a week with their primary care physician. A CBC, BMP, troponin, EKG, chest x-ray was ordered to further evaluate patient. Patient was given Toradol 30 mg IV with improvement of his pain. CBC: No leukocytosis. No e/o of systemic infection. No e/o anemia. CMP: No e/o severe acidosis, alkalosis, renal failure, diabetic ketoacidosis, liver disease Troponin less than 0.012 EKG reviewed and interpreted by Dr. Magaña Rate/Rhythm: [81 bpm, Normal Sinus Rhythm] No ectopy, no ST elevations, normal axis. QRS, ST, T-waves: [No changes consistent w/ acute ischemia] Impression: [No evidence of ischemia or arrhythmia] This patient was discussed with my supervising physician, Dr. Zavala who agreed with the management and discharge plan. Patient at this time does not have any evidence of ACS. Patient has had similar symptoms previously without any ACS findings. Patient however is instructed to follow-up with his forensic psychologist for further evaluation and treatment. Low suspicion for acute myocardial i nfarction, pneumothorax, pneumonia, cardiac tamponade, Waxru-Hmizapzez-Ifuqu Syndrome, Brugada Syndrome, pulmonary embolism, AAA, aortic dissection, thoracic aortic dissection, endocarditis, myocarditis, pericarditis, cocaine-related ischemia, Boerhaave's syndrome, cardiac dysrhythmias,meningitis, intracranial bleed, seizure, stroke, TIA or other emergent conditions. Diagnosis: Paresthesia, Chest pain Discharge medications: Ibuprofen Follow up with primary care physician in 1-2 days. Instructed patient to return to the ED sooner for any worsening symptoms. Patient's questions were answered. Patient is hemodynamically stable. Patient understood and agreed with discharge plan. Patient discharged stable. Disclaimer: Inadvertent spelling and grammatical errors are likely due to EHR/dictation software use and do not reflect on the overall quality of patient care. Also, please note that the electronic time recorded on this note does not necessarily reflect the actual time of the patient encounter. Departure Diagnosis: Primary Impression: Paresthesia Additional Impression: Chest pain Chest pain type: unspecified Qualified Codes: R07.9 - Chest pain, unspe cified Condition: Stable Patient Instructions: Chest Pain, Uncertain Cause, Paraesthesias Referrals: [facility] YOU HAVE RECEIVED A MEDICAL SCREENING EXAM AND THE RESULTS INDICATE THAT YOU DO NOT HAVE A CONDITION THAT REQUIRES URGENT TREATMENT IN THE EMERGENCY DEPARTMENT. FURTHER EVALUATION AND TREATMENT OF YOUR CONDITION CAN WAIT UNTIL YOU ARE SEEN IN YOUR DOCTORS OFFICE WITHIN THE NEXT 1-2 DAYS. IT IS YOUR RESPONSIBILITY TO MAKE AN APPOINTMENT FOR FOLOW-UP CARE. IF YOU HAVE A PRIMARY DOCTOR --you should call your primary doctor and schedule an appointment IF YOU DO NOT HAVE A PRIMARY DOCTOR YOU CAN CALL OUR PHYSICIAN REFERRAL HOTLINE AT IF YOU CAN NOT AFFORD TO SEE A PHYSICIAN YOU CAN CHOSE FROM THE FOLLOWING [facility] [address] [facility]. [facility] [address] [facility] [address] [facility]. [facility] [address] [facility]. [facility] [address] [facility]. [facility] [address] [facility]. [facility] YOU HAVE RECEIVED A MEDICAL SCREENING EXAM AND THE RESULTS INDICATE THAT YOU DO NOT HAVE A CONDITION THAT REQUIRES URGENT TREATMENT IN THE EMERGENCY DEPARTMENT. FURTHER EVALUATION AND TREATMENT OF YOUR CONDITION CAN WAIT UNTIL YOU ARE SEEN IN YOUR DOCTORS OFFICE WITHIN THE NEXT 1-2 DAYS. IT IS YOUR RESPONSIBILITY TO MAKE AN APPOINTMENT FOR FOLOW-UP CARE. IF YOU HAVE A PRIMARY DOCTOR --you should call your primary doctor and schedule and appointment IF YOU DO NOT HAVE A PRIMARY DOCTOR YOU CAN CALL OUR PHYSICIAN REFERRAL HOTLINE AT . IF YOU CAN NOT AFFORD TO SEE A PHYSICIAN YOU CAN CHOSE FROM THE FOLLOWING [facility] INSTITUTIONS: [facility] [id number] [place] [address] [facility] [address] [place], [place] [id number] [place] [address] [address] [place] [address] [facility] URGENT CARE/SPECIALTIES Additional Instructions: Call your primary care doctor TOMORROW for an appointment during the next 2-3 days for a referral to see a forensic psychologist. See the doctor sooner or return here if your condition worsens before your appointment time. FIFI BARBOSA PA-C Aug 06, 2018 22:08
== END 2018-08-06 19:32 | disposition home or self-care (01) ==
LOC: FTE 15:54
DX: R20.2 Paresthesia of skin (principal); R07.9 Chest pain, unspecified
CPT/HCPCS: 36415; 71045; 80048; 84484; 85025; 93005; 96374; J1885; Z7502; Z7610